=== PATIENT | male | born 1985 | race Caucasian/White ===

== ENCOUNTER 2017-05-25 16:42 | Inpatient (IN) | payer MEDICAID ==
[~2017-05-25] VITALS: Ht 185.4 cm; Wt 119.5 kg
[~2017-05-25 16:42] MED LIST: BUSP5TAB3 PO; CYCL-1 PO; TRAZ5POW
[2017-05-25] MEDS ORDERED: sodium bicarbonate (8.4%) 1 mEq/ml syringe IV ONE (17:10)
[2017-05-25] MEDS ORDERED: charcoal, activated 50 GM/240 ML bottle PO ONE (17:15)
[2017-05-25] MEDS ORDERED: normal saline 1000ml 1,000 ML IV ONE (17:15)
[2017-05-25 17:43] LABS: BASOPHILS # (AUTO) 0.1 X10'3 (0-0.2); BASOPHILS % (AUTO) 0.5 % (0-1); EOSINOPHILS # (AUTO) 0.2 X10'3 (0-0.9); EOSINOPHILS % (AUTO) 1.6 % (0-6); HEMATOCRIT 41.5 % (42.0-52.0); HEMOGLOBIN 14.3 g/dl (14.0-17.9); LYMPHOCYTES # (AUTO) 2.3 X10'3 (1.1-4.8); LYMPHOCYTES % (AUTO) 21.1 % (21-51); MEAN CORPUSCULAR HEMOGLOBIN 29.1 PG (27.0-31.0); MEAN CORPUSCULAR HGB CONC 34.3 % (33.0-36.5); MEAN CORPUSCULAR VOLUME 84.9 FL (78-98); MEAN PLATELET VOLUME 7.6 FL (7.4-10.4); MONOCYTES # (AUTO) 0.8 X10'3 (0-0.9); MONOCYTES % (AUTO) 7.2 % (2-12); NEUTROPHILS # (AUTO) 7.6 X10'3 (1.8-7.7); NEUTROPHILS % (AUTO) 69.6 % (42-75); PLATELET COUNT 401 X10'3 (140-440); RED BLOOD COUNT 4.89 X10'6 (4.70-6.10); RED CELL DISTRIBUTION WIDTH 13.1 % (11.5-14.5); WHITE BLOOD COUNT 10.9 X10'3 (4.5-11.0)
[2017-05-25 17:46] LABS: ABG BASE EXCESS -1.9 mmol/L (-2.0-3.0); ABG HCO3 20.7 mmol/L (22.0-26.0); ABG OXYGEN SATURATION 96.1 % (95-98); ABG PCO2 (T) 29.9 mmHg (35.0-48.0); ABG PH (T) 7.458 (7.350-7.450); ABG PO2 (T) 77.6 mmHg (83-108); ALLEN'S TEST Positive; FCOHb 3.2 % (0.5-1.5); FMetHb 0.1 % (0.3-1.12); FO2Hb 92.9 % (94-100); TOTAL HEMOGLOBIN 14.7 G/dl (14.0-18.0)
[2017-05-25] MEDS ORDERED: rocuronium 10mg/ml inj IV ONE (17:55)
[2017-05-25] MEDS: etomidate 2mg/ml inj. IV ONE ×2 (17:56→18:09)
[2017-05-25] MEDS ORDERED: propofol 1000mg/100ml bottle 100 ML IV ONE ×2 (18:02→22:40)
[2017-05-25 18:08] LABS: ALANINE AMINOTRANSFERASE 64 U/L (12-78); ALBUMIN 3.6 G/DL (3.4-5.0); ALKALINE PHOSPHATASE 101 IU/L (46-116); ANION GAP 13 (8-16); ASPARTATE AMINO TRANSFERASE 22 U/L (10-37); BILIRUBIN,TOTAL 0.2 MG/DL (0.1-1.0); BLOOD UREA NITROGEN 17 MG/DL (7-18); BUN/CREATININE RATIO 18.5 (5.4-32.0); CHLORIDE 110 MMOL/L (99-107); CREATININE 0.92 MG/DL (0.60-1.10); ETHANOL 0.132 GM/DL (0.0-0.010); GLUCOSE 97 MG/DL (70-104); POTASSIUM 3.2 MMOL/L (3.5-5.1); SODIUM 147 MMOL/L (135-145); TOTAL CARBON DIOXIDE 23.9 MMOL/L (24-32); TOTAL PROTEIN 7.2 G/DL (6.4-8.2); eGFR > 90 ML/MIN
[2017-05-25 18:12] LABS: ACETAMINOPHEN < 2.0 UG/ML (10-30)
[2017-05-25] MEDS: propofol 1000mg/100ml bottle 100 ML IV PRN ×2 (18:15→19:56)
[2017-05-25] MEDS ORDERED: magnesium Cl slow-release 64mg tablet PO PRN (19:00)
[2017-05-25] MEDS: K, MAG and/or Phos replacement - Verify level? MC SCH (19:00)
[2017-05-25] MEDS ORDERED: magnesium 2GM in 50ml NS 50 ML IV PRN (19:00)
[2017-05-25] MEDS ORDERED: sodium phosphate inj. 15 MMOL in dextrose 5%-water 150 ML IV PRN (19:00)
[2017-05-25] MEDS ORDERED: sodium phosphate inj. 30 MMOL in dextrose 5%-water 250 ML IV PRN (19:00)
[2017-05-25] MEDS ORDERED: Neutra Phos packet PO PRN (19:00)
[2017-05-25] MEDS ORDERED: magnesium 4gm in 100ml NS 100 ML IV PRN (19:00)
[2017-05-25] MEDS ORDERED: potassium Cl 20 mEq SR tablet PO PRN ×2 (19:00)
[2017-05-25 19:06] LABS: ABG BASE EXCESS -5.2 mmol/L (-2.0-3.0); ABG HCO3 18.9 mmol/L (22.0-26.0); ABG OXYGEN SATURATION 96.3 % (95-98); ABG PCO2 (T) 32.3 mmHg (35.0-48.0); ABG PH (T) 7.383 (7.350-7.450); ABG PO2 (T) 86.2 mmHg (83-108); ALLEN'S TEST Positive; FCOHb 2.3 % (0.5-1.5); FMetHb 0.1 % (0.3-1.12); MINUTE VOLUME 13 L/min; PATIENT TEMPERATURE 36.4; PEEP 5 cm H2O; RESPIRATORY RATE 20 b/min; RESPIRATORY RATE (OBSERVED) 20 b/min; TIDAL VOLUME 500 mL
[2017-05-25 19:16] LABS: CLARITY,URINE Clear (Clear); COLOR,URINE Yellow (Yellow); GLUCOSE, URINE Negative (Neg); KETONES,URINE Negative (Neg); LEUKOCYTE ESTERASE ,URINE Negative (Neg); NITRITES, URINE Negative (Neg); OCCULT BLOOD,URINE Negative (Neg); PH,URINE 7.5 (4.8-8.0); PROTEIN,URINE Negative (Neg); UROBILINOGEN,URINE 0.2 E.U/dL (0.2-1.0)
[2017-05-25 19:25] LABS: UA COLLECTION TYPE FOLEY CATH
[2017-05-25 19:29] LABS: URINE AMPHETAMINE SCREEN NEGATIVE (Neg); URINE BARBITUATE SCREEN NEGATIVE (Neg); URINE BENZODIAZEPINES SCREEN NEGATIVE (Neg); URINE CANNABINOID SCREEN NEGATIVE (Neg); URINE COCAINE SCREEN NEGATIVE (Neg); URINE METHADONE SCREEN NEGATIVE (Neg); URINE OPIATE SCREEN NEGATIVE (Neg); URINE PHENCYCLIDINE SCREEN NEGATIVE (Neg)
[2017-05-25] MEDS: pantoprazole 40 MG vial IV SCH (19:33)
[2017-05-25] MEDS: sodium bicarbonate (8.4%) inj. 100 MEQ in dextrose 5%-water 1,000 ML IV SCH (19:54)
[2017-05-25] MEDS: enoxaparin 40mg/0.4ml syringe SUBCUT SCH (20:01)
[2017-05-25] MEDS ORDERED: TOPI200T PO (20:49)
[2017-05-25] MEDS ORDERED: AMIT-189 PO (20:51)
[2017-05-25] MEDS ORDERED: midazolam 2 mg/2 ml injection IV ONE (21:40)
[2017-05-25] MEDS ORDERED: fentaNYL/PF 50MCG/1 ML 2ML syringe IV PRN (21:40)
[2017-05-25 23:00] VITALS: BP 157/98
[2017-05-25] MEDS: midazolam 100mg in NS 100ml 100 ML IV PRN (23:08)
[2017-05-25] MEDS: FENTANYL-0.9 % NACL/PF 100 ML IV PRN (23:09)
[2017-05-26] VITALS (25 sets, daily range): BP systolic 96–153; BP diastolic 55–101
[2017-05-26] MEDS ORDERED: sodium bicarbonate (8.4%) 1 mEq/ml syringe IV STA (01:16)
[2017-05-26] MEDS ORDERED: normal saline 1000ml 1,000 ML IVB ONE (01:23)
[2017-05-26] MEDS ORDERED: potassium Cl 40MEQ/NS 500ml 500 ML IV PRN (01:25)
[2017-05-26 01:28] LABS: ALBUMIN 3.2 G/DL (3.4-5.0); ANION GAP 11 (8-16); BLOOD UREA NITROGEN 16 MG/DL (7-18); BUN/CREATININE RATIO 16.8 (5.4-32.0); CALCIUM 7.6 MG/DL (8.5-10.1); CHLORIDE 110 MMOL/L (99-107); CREATININE 0.95 MG/DL (0.60-1.10); GLUCOSE 139 MG/DL (70-104); POTASSIUM 3.5 MMOL/L (3.5-5.1); SODIUM 145 MMOL/L (135-145); TOTAL CARBON DIOXIDE 23.9 MMOL/L (24-32); eGFR > 90 ML/MIN
[2017-05-26 01:35] LABS: ABG BASE EXCESS -2.9 mmol/L (-2.0-3.0); ABG HCO3 21.3 mmol/L (22.0-26.0); ABG OXYGEN SATURATION 98.8 % (95-98); ABG PCO2 (T) 34.4 mmHg (35.0-48.0); ABG PH (T) 7.406 (7.350-7.450); ABG PO2 (T) 147.2 mmHg (83-108); ALLEN'S TEST Positive; FCOHb 0.1 % (0.5-1.5); FMetHb 0.2 % (0.3-1.12); FO2Hb 98.5 % (94-100); MINUTE VOLUME 11 L/min; PATIENT TEMPERATURE 36.5; PEEP 5 cm H2O; RESPIRATORY RATE 20 b/min; RESPIRATORY RATE (OBSERVED) 20 b/min; TIDAL VOLUME 500 mL; TOTAL HEMOGLOBIN 13.4 G/dl (14.0-18.0)
[2017-05-26 04:16] LABS: BASOPHILS % (AUTO) 0.3 % (0-1); EOSINOPHILS # (AUTO) 0.2 X10'3 (0-0.9); EOSINOPHILS % (AUTO) 1.5 % (0-6); HEMOGLOBIN 13.6 g/dl (14.0-17.9); MEAN CORPUSCULAR HEMOGLOBIN 29.3 PG (27.0-31.0); MEAN CORPUSCULAR HGB CONC 34.8 % (33.0-36.5); MEAN CORPUSCULAR VOLUME 84.3 FL (78-98); MEAN PLATELET VOLUME 7.8 FL (7.4-10.4); MONOCYTES # (AUTO) 0.8 X10'3 (0-0.9); MONOCYTES % (AUTO) 7.4 % (2-12); NEUTROPHILS # (AUTO) 8.1 X10'3 (1.8-7.7); NEUTROPHILS % (AUTO) 72.8 % (42-75); PLATELET COUNT 267 X10'3 (140-440); RED BLOOD COUNT 4.63 X10'6 (4.70-6.10); RED CELL DISTRIBUTION WIDTH 13.4 % (11.5-14.5); WHITE BLOOD COUNT 11.2 X10'3 (4.5-11.0)
[2017-05-26 04:25] LABS: ALANINE AMINOTRANSFERASE 58 U/L (12-78); ALBUMIN 3.3 G/DL (3.4-5.0); ALBUMIN/GLOBULIN RATIO 0.9 (1.1-1.5); ALKALINE PHOSPHATASE 97 IU/L (46-116); ANION GAP 11 (8-16); ASPARTATE AMINO TRANSFERASE 22 U/L (10-37); BILIRUBIN,TOTAL 0.2 MG/DL (0.1-1.0); BLOOD UREA NITROGEN 16 MG/DL (7-18); BUN/CREATININE RATIO 18.2 (5.4-32.0); CALCIUM 7.9 MG/DL (8.5-10.1); CHLORIDE 110 MMOL/L (99-107); CREATININE 0.88 MG/DL (0.60-1.10); GLUCOSE 137 MG/DL (70-104); MAGNESIUM 1.7 MG/DL (1.5-2.4); POTASSIUM 3.6 MMOL/L (3.5-5.1); SODIUM 144 MMOL/L (135-145); TOTAL CARBON DIOXIDE 22.6 MMOL/L (24-32); TOTAL PROTEIN 6.8 G/DL (6.4-8.2); eGFR > 90 ML/MIN
[2017-05-26 04:47] LABS: INR 1.1 INR; PARTIAL THROMBOPLASTIN TIME 22 SECONDS (22-32); PROTHROMBIN TIME 11.2 SECONDS (9.0-12.0)
[2017-05-26] MEDS: sodium bicarbonate (8.4%) inj. 100 MEQ in dextrose 5%-water 1,000 ML IV SCH ×2 (06:49→17:33)
[2017-05-26] MEDS: FENTANYL-0.9 % NACL/PF 100 ML IV PRN ×2 (06:53→23:46)
[2017-05-26 07:42] LABS: ALANINE AMINOTRANSFERASE 55 U/L (12-78); ALBUMIN 3.3 G/DL (3.4-5.0); ALBUMIN/GLOBULIN RATIO 0.9 (1.1-1.5); ALKALINE PHOSPHATASE 97 IU/L (46-116); ANION GAP 11 (8-16); ASPARTATE AMINO TRANSFERASE 19 U/L (10-37); BILIRUBIN,TOTAL 0.4 MG/DL (0.1-1.0); BLOOD UREA NITROGEN 15 MG/DL (7-18); CHLORIDE 110 MMOL/L (99-107); GLUCOSE 109 MG/DL (70-104); POTASSIUM 3.3 MMOL/L (3.5-5.1); SODIUM 146 MMOL/L (135-145); TOTAL CARBON DIOXIDE 24.8 MMOL/L (24-32); TOTAL PROTEIN 6.8 G/DL (6.4-8.2); eGFR 87 ML/MIN
[2017-05-26] MEDS: K, MAG and/or Phos replacement - Verify level? MC SCH (08:00)
[2017-05-26] MEDS: pantoprazole 40 MG vial IV SCH (08:36)
[2017-05-26] MEDS: enoxaparin 40mg/0.4ml syringe SUBCUT SCH (08:37)
[2017-05-26 09:13] LABS: ALBUMIN 3.2 G/DL (3.4-5.0); ANION GAP 11 (8-16); BLOOD UREA NITROGEN 14 MG/DL (7-18); BUN/CREATININE RATIO 13.7 (5.4-32.0); CHLORIDE 110 MMOL/L (99-107); CREATININE 1.02 MG/DL (0.60-1.10); GLUCOSE 106 MG/DL (70-104); POTASSIUM 3.2 MMOL/L (3.5-5.1); SODIUM 147 MMOL/L (135-145); TOTAL CARBON DIOXIDE 25.7 MMOL/L (24-32); eGFR 85 ML/MIN
[2017-05-26] MEDS: potassium Cl 40MEQ/NS 500ml 500 ML IV PRN (09:53)
[2017-05-26 11:31] LABS: ALANINE AMINOTRANSFERASE 48 U/L (12-78); ALBUMIN 3.2 G/DL (3.4-5.0); ALBUMIN/GLOBULIN RATIO 0.9 (1.1-1.5); ALKALINE PHOSPHATASE 99 IU/L (46-116); ANION GAP 9 (8-16); ASPARTATE AMINO TRANSFERASE 25 U/L (10-37); BILIRUBIN,TOTAL 0.4 MG/DL (0.1-1.0); BLOOD UREA NITROGEN 14 MG/DL (7-18); BUN/CREATININE RATIO 13.3 (5.4-32.0); CHLORIDE 111 MMOL/L (99-107); CREATININE 1.05 MG/DL (0.60-1.10); GLUCOSE 100 MG/DL (70-104); MAGNESIUM 1.6 MG/DL (1.5-2.4); POTASSIUM 3.4 MMOL/L (3.5-5.1); SODIUM 147 MMOL/L (135-145); TOTAL CARBON DIOXIDE 26.8 MMOL/L (24-32); TOTAL PROTEIN 6.6 G/DL (6.4-8.2); eGFR 82 ML/MIN
[2017-05-26 13:11] LABS: ABG BASE EXCESS -2.2 mmol/L (-2.0-3.0); ABG HCO3 20.8 mmol/L (22.0-26.0); ABG OXYGEN SATURATION 96.7 % (95-98); ABG PCO2 (T) 31.6 mmHg (35.0-48.0); ABG PH (T) 7.439 (7.350-7.450); ABG PO2 (T) 91.1 mmHg (83-108); ALLEN'S TEST Positive; FCOHb 0.3 % (0.5-1.5); FLOW 55 L/min; FMetHb 0.2 % (0.3-1.12); FO2Hb 96.2 % (94-100); MINUTE VOLUME 11 L/min; PATIENT TEMPERATURE 37.6; PEEP 5 cm H2O; RESPIRATORY RATE 20 b/min; RESPIRATORY RATE (OBSERVED) 20 b/min; TIDAL VOLUME 500 mL; TOTAL HEMOGLOBIN 13.6 G/dl (14.0-18.0)
[2017-05-26] MEDS: midazolam 100mg in NS 100ml 100 ML IV PRN (13:20)
[2017-05-26] MEDS ORDERED: sodium chloride 0.45% 1,000 ML IV ONE (19:30)
[2017-05-26 23:06] LABS: ALBUMIN 2.9 G/DL (3.4-5.0); ANION GAP 10 (8-16); BLOOD UREA NITROGEN 15 MG/DL (7-18); CHLORIDE 109 MMOL/L (99-107); GLUCOSE 93 MG/DL (70-104); POTASSIUM 3.2 MMOL/L (3.5-5.1); SODIUM 143 MMOL/L (135-145); TOTAL CARBON DIOXIDE 23.9 MMOL/L (24-32); eGFR 87 ML/MIN
[2017-05-27] VITALS (24 sets, daily range): BP systolic 113–155; BP diastolic 69–97
[2017-05-27] MEDS: potassium Cl 40MEQ/NS 500ml 500 ML IV PRN ×2 (01:23→12:30)
[2017-05-27] MEDS: mineral oil/petrolatum ophthal oint EACHEYE SCH ×4 (01:31→20:00)
[2017-05-27 03:21] LABS: ABG BASE EXCESS -0.2 mmol/L (-2.0-3.0); ABG HCO3 22.6 mmol/L (22.0-26.0); ABG OXYGEN SATURATION 96.2 % (95-98); ABG PH (T) 7.468 (7.350-7.450); ABG PO2 (T) 79.5 mmHg (83-108); ALLEN'S TEST Positive; FCOHb 0.8 % (0.5-1.5); FMetHb 0.3 % (0.3-1.12); FO2Hb 95.1 % (94-100); MINUTE VOLUME 11 L/min; PATIENT TEMPERATURE 37.5; PEEP 5 cm H2O; RESPIRATORY RATE 20 b/min; RESPIRATORY RATE (OBSERVED) 20 b/min; TIDAL VOLUME 500 mL; TOTAL HEMOGLOBIN 12.6 G/dl (14.0-18.0)
[2017-05-27] MEDS: midazolam 100mg in NS 100ml 100 ML IV PRN ×2 (04:25→16:59)
[2017-05-27] MEDS: sodium bicarbonate (8.4%) inj. 100 MEQ in dextrose 5%-water 1,000 ML IV SCH (04:25)
[2017-05-27 05:22] LABS: BASOPHILS # (AUTO) 0.1 X10'3 (0-0.2); BASOPHILS % (AUTO) 0.4 % (0-1); EOSINOPHILS # (AUTO) 0.6 X10'3 (0-0.9); EOSINOPHILS % (AUTO) 4.7 % (0-6); HEMATOCRIT 37.1 % (42.0-52.0); HEMOGLOBIN 12.6 g/dl (14.0-17.9); LYMPHOCYTES # (AUTO) 3.7 X10'3 (1.1-4.8); LYMPHOCYTES % (AUTO) 27.2 % (21-51); MEAN CORPUSCULAR HEMOGLOBIN 29.1 PG (27.0-31.0); MEAN CORPUSCULAR HGB CONC 34.1 % (33.0-36.5); MEAN CORPUSCULAR VOLUME 85.3 FL (78-98); MEAN PLATELET VOLUME 7.7 FL (7.4-10.4); MONOCYTES # (AUTO) 1.2 X10'3 (0-0.9); MONOCYTES % (AUTO) 8.8 % (2-12); NEUTROPHILS # (AUTO) 8.1 X10'3 (1.8-7.7); NEUTROPHILS % (AUTO) 58.9 % (42-75); PLATELET COUNT 334 X10'3 (140-440); RED BLOOD COUNT 4.35 X10'6 (4.70-6.10); RED CELL DISTRIBUTION WIDTH 13.2 % (11.5-14.5); WHITE BLOOD COUNT 13.7 X10'3 (4.5-11.0)
[2017-05-27 05:52] LABS: PARTIAL THROMBOPLASTIN TIME 28 SECONDS (22-32)
[2017-05-27 06:11] LABS: ALANINE AMINOTRANSFERASE 44 U/L (12-78); ALBUMIN 2.9 G/DL (3.4-5.0); ALBUMIN/GLOBULIN RATIO 0.9 (1.1-1.5); ALKALINE PHOSPHATASE 100 IU/L (46-116); ANION GAP 13 (8-16); ASPARTATE AMINO TRANSFERASE 25 U/L (10-37); BILIRUBIN,TOTAL 0.5 MG/DL (0.1-1.0); BLOOD UREA NITROGEN 15 MG/DL (7-18); BUN/CREATININE RATIO 13.5 (5.4-32.0); CALCIUM 7.8 MG/DL (8.5-10.1); CHLORIDE 108 MMOL/L (99-107); CREATININE 1.11 MG/DL (0.60-1.10); GLUCOSE 94 MG/DL (70-104); MAGNESIUM 1.7 MG/DL (1.5-2.4); PHOSPHORUS 3.4 MG/DL (2.3-4.5); POTASSIUM 3.4 MMOL/L (3.5-5.1); SODIUM 144 MMOL/L (135-145); TOTAL CARBON DIOXIDE 23.4 MMOL/L (24-32); TOTAL PROTEIN 6.3 G/DL (6.4-8.2); eGFR 77 ML/MIN
[2017-05-27] MEDS: K, MAG and/or Phos replacement - Verify level? MC SCH (08:00)
[2017-05-27] MEDS: enoxaparin 40mg/0.4ml syringe SUBCUT SCH (08:55)
[2017-05-27] MEDS: pantoprazole 40 MG vial IV SCH (08:55)
[2017-05-27] MEDS: normal saline 1000ml 1,000 ML IV SCH (10:35)
[2017-05-27] MEDS: propofol 1000mg/100ml bottle 100 ML IV PRN ×3 (11:53→21:40)
[2017-05-27] MEDS: FENTANYL-0.9 % NACL/PF 100 ML IV PRN (12:30)
[2017-05-28] VITALS (24 sets, daily range): BP systolic 125–165; BP diastolic 77–100
[2017-05-28] MEDS: mineral oil/petrolatum ophthal oint EACHEYE SCH ×2 (02:33→07:58)
[2017-05-28] MEDS: propofol 1000mg/100ml bottle 100 ML IV PRN ×2 (02:49→06:33)
[2017-05-28 03:31] LABS: ABG BASE EXCESS -2.9 mmol/L (-2.0-3.0); ABG OXYGEN SATURATION 92.2 % (95-98); ABG PCO2 (T) 33.6 mmHg (35.0-48.0); ABG PH (T) 7.413 (7.350-7.450); ABG PO2 (T) 63.8 mmHg (83-108); ALLEN'S TEST Positive; FCOHb 0.3 % (0.5-1.5); FMetHb 0.1 % (0.3-1.12); FO2Hb 91.8 % (94-100); MINUTE VOLUME 10 L/min; PATIENT TEMPERATURE 36.9; PEEP 5 cm H2O; RESPIRATORY RATE 18 b/min; RESPIRATORY RATE (OBSERVED) 18 b/min; TIDAL VOLUME 500 mL; TOTAL HEMOGLOBIN 13.2 G/dl (14.0-18.0)
[2017-05-28 05:45] LABS: BASOPHILS # (AUTO) 0.1 X10'3 (0-0.2); BASOPHILS % (AUTO) 0.7 % (0-1); EOSINOPHILS # (AUTO) 0.5 X10'3 (0-0.9); EOSINOPHILS % (AUTO) 5.3 % (0-6); HEMATOCRIT 39.7 % (42.0-52.0); HEMOGLOBIN 13.7 g/dl (14.0-17.9); LYMPHOCYTES # (AUTO) 1.9 X10'3 (1.1-4.8); LYMPHOCYTES % (AUTO) 20.4 % (21-51); MEAN CORPUSCULAR HEMOGLOBIN 29.5 PG (27.0-31.0); MEAN CORPUSCULAR HGB CONC 34.5 % (33.0-36.5); MEAN CORPUSCULAR VOLUME 85.4 FL (78-98); MEAN PLATELET VOLUME 7.5 FL (7.4-10.4); MONOCYTES # (AUTO) 0.6 X10'3 (0-0.9); NEUTROPHILS % (AUTO) 66.6 % (42-75); PLATELET COUNT 309 X10'3 (140-440); RED BLOOD COUNT 4.65 X10'6 (4.70-6.10); RED CELL DISTRIBUTION WIDTH 13.1 % (11.5-14.5); WHITE BLOOD COUNT 9.1 X10'3 (4.5-11.0)
[2017-05-28 05:55] LABS: INR 0.9 INR; PARTIAL THROMBOPLASTIN TIME 30 SECONDS (22-32); PROTHROMBIN TIME 9.8 SECONDS (9.0-12.0)
[2017-05-28 06:06] LABS: ALANINE AMINOTRANSFERASE 40 U/L (12-78); ALBUMIN/GLOBULIN RATIO 0.8 (1.1-1.5); ALKALINE PHOSPHATASE 110 IU/L (46-116); ANION GAP 13 (8-16); ASPARTATE AMINO TRANSFERASE 21 U/L (10-37); BILIRUBIN,TOTAL 0.6 MG/DL (0.1-1.0); BLOOD UREA NITROGEN 10 MG/DL (7-18); CALCIUM 8.7 MG/DL (8.5-10.1); CHLORIDE 106 MMOL/L (99-107); CREATININE 0.91 MG/DL (0.60-1.10); GLUCOSE 81 MG/DL (70-104); MAGNESIUM 1.8 MG/DL (1.5-2.4); PHOSPHORUS 4.2 MG/DL (2.3-4.5); POTASSIUM 3.5 MMOL/L (3.5-5.1); SODIUM 142 MMOL/L (135-145); TOTAL PROTEIN 6.8 G/DL (6.4-8.2); eGFR > 90 ML/MIN
[2017-05-28] MEDS: normal saline 1000ml 1,000 ML IV SCH (06:43)
[2017-05-28] MEDS: enoxaparin 40mg/0.4ml syringe SUBCUT SCH (07:58)
[2017-05-28] MEDS: pantoprazole 40 MG vial IV SCH (07:58)
[2017-05-28] MEDS: K, MAG and/or Phos replacement - Verify level? MC SCH (07:58)
[2017-05-28] MEDS: FENTANYL-0.9 % NACL/PF 100 ML IV PRN (08:33)
[2017-05-28] MEDS ORDERED: furosemide 40mg/4ml inj IV ONE (09:50)
[2017-05-28] MEDS ORDERED: mineral oil/petrolatum ophthal oint EACHEYE SCH (14:00)
[2017-05-28] MEDS ORDERED: ketorolac trometh. 30mg/ml inj. IV ONE (14:05)
[2017-05-28 14:30] LABS: BASOPHILS % (AUTO) 0.3 % (0-1); EOSINOPHILS # (AUTO) 0.3 X10'3 (0-0.9); EOSINOPHILS % (AUTO) 2.3 % (0-6); HEMATOCRIT 41.7 % (42.0-52.0); HEMOGLOBIN 14.5 g/dl (14.0-17.9); LYMPHOCYTES # (AUTO) 1.3 X10'3 (1.1-4.8); LYMPHOCYTES % (AUTO) 10.5 % (21-51); MEAN CORPUSCULAR HEMOGLOBIN 29.2 PG (27.0-31.0); MEAN CORPUSCULAR HGB CONC 34.8 % (33.0-36.5); MEAN CORPUSCULAR VOLUME 83.9 FL (78-98); MEAN PLATELET VOLUME 7.6 FL (7.4-10.4); MONOCYTES # (AUTO) 0.6 X10'3 (0-0.9); MONOCYTES % (AUTO) 4.9 % (2-12); PLATELET COUNT 387 X10'3 (140-440); RED BLOOD COUNT 4.97 X10'6 (4.70-6.10); WHITE BLOOD COUNT 12.1 X10'3 (4.5-11.0)
[2017-05-28] MEDS ORDERED: acetaminophen 325mg tablet PO PRN (14:50)
[2017-05-28 16:54] LABS: PLATELET ESTIMATE NORMAL; TOTAL CELLS COUNTED 100
[2017-05-29] VITALS (15 sets, daily range): BP systolic 119–154; BP diastolic 66–95
[2017-05-29 06:05] LABS: BASOPHILS % (AUTO) 0.3 % (0-1); EOSINOPHILS # (AUTO) 0.5 X10'3 (0-0.9); EOSINOPHILS % (AUTO) 6.4 % (0-6); HEMATOCRIT 37.5 % (42.0-52.0); HEMOGLOBIN 13.1 g/dl (14.0-17.9); LYMPHOCYTES # (AUTO) 2.1 X10'3 (1.1-4.8); LYMPHOCYTES % (AUTO) 25.7 % (21-51); MEAN CORPUSCULAR HEMOGLOBIN 29.3 PG (27.0-31.0); MEAN CORPUSCULAR HGB CONC 34.8 % (33.0-36.5); MEAN CORPUSCULAR VOLUME 84.4 FL (78-98); MEAN PLATELET VOLUME 7.8 FL (7.4-10.4); MONOCYTES # (AUTO) 0.8 X10'3 (0-0.9); MONOCYTES % (AUTO) 9.9 % (2-12); NEUTROPHILS # (AUTO) 4.7 X10'3 (1.8-7.7); NEUTROPHILS % (AUTO) 57.7 % (42-75); PLATELET COUNT 350 X10'3 (140-440); RED BLOOD COUNT 4.45 X10'6 (4.70-6.10); RED CELL DISTRIBUTION WIDTH 12.9 % (11.5-14.5); WHITE BLOOD COUNT 8.2 X10'3 (4.5-11.0)
[2017-05-29 06:14] LABS: PARTIAL THROMBOPLASTIN TIME 30 SECONDS (22-32); PROTHROMBIN TIME 9.9 SECONDS (9.0-12.0)
[2017-05-29 06:18] LABS: ALANINE AMINOTRANSFERASE 60 U/L (12-78); ALBUMIN 3.1 G/DL (3.4-5.0); ALBUMIN/GLOBULIN RATIO 0.7 (1.1-1.5); ALKALINE PHOSPHATASE 118 IU/L (46-116); ANION GAP 11 (8-16); ASPARTATE AMINO TRANSFERASE 43 U/L (10-37); BILIRUBIN,TOTAL 0.5 MG/DL (0.1-1.0); BLOOD UREA NITROGEN 14 MG/DL (7-18); BUN/CREATININE RATIO 14.1 (5.4-32.0); CALCIUM 9.2 MG/DL (8.5-10.1); CHLORIDE 106 MMOL/L (99-107); CREATININE 0.99 MG/DL (0.60-1.10); GLUCOSE 104 MG/DL (70-104); PHOSPHORUS 5.4 MG/DL (2.3-4.5); POTASSIUM 3.5 MMOL/L (3.5-5.1); SODIUM 142 MMOL/L (135-145); TOTAL CARBON DIOXIDE 25.3 MMOL/L (24-32); TOTAL PROTEIN 7.3 G/DL (6.4-8.2); eGFR 88 ML/MIN
[2017-05-29] MEDS: K, MAG and/or Phos replacement - Verify level? MC SCH (07:32)
[2017-05-29] MEDS: pantoprazole 40 MG vial IV SCH (07:41)
[2017-05-29] MEDS: enoxaparin 40mg/0.4ml syringe SUBCUT SCH (07:47)
[2017-05-30] MEDS ORDERED: pantoprazole 40mg Tablet.DR PO SCH (07:30)
[2017-05-30] MEDS ORDERED: methylnaltrexone br 12mg/0.6ml inj***SubQ only SQ SCH (08:00)
== END 2017-05-29 16:31 | disposition home or self-care (01) | DRG 812 ==
LOC: ER 16:42 → ED HOLD 18:57 → ICU 2S 22:50
PROVIDERS: ADMIT Internal Medicine Critical Care Medicine; ATTEND Internal Medicine Critical Care Medicine
PROC: 5A1945Z Respiratory Ventilation, 24-96 Consecutive Hours (ICD-10-PCS; principal; 2017-05-25)
PROC: 0BH17EZ Insertion of Endotracheal Airway into Trachea, Via Natural or Artificial Opening (ICD-10-PCS; 2017-05-25)
DX: T48.1X2A Poisoning by skeletal muscle relaxants [neuromuscular blocking agents], intentional self-harm, initial encounter (principal); J96.00 Acute respiratory failure, unspecified whether with hypoxia or hypercapnia; G92 Toxic encephalopathy; F43.10 Post-traumatic stress disorder, unspecified; G89.29 Other chronic pain; F32.9 Major depressive disorder, single episode, unspecified; M54.9 Dorsalgia, unspecified; T43.012A Poisoning by tricyclic antidepressants, intentional self-harm, initial encounter; T51.8X2A Toxic effect of other alcohols, intentional self-harm, initial encounter; Y92.89 Other specified places as the place of occurrence of the external cause; Z88.8 Allergy status to other drugs, medicaments and biological substances; Z79.899 Other long term (current) drug therapy
CPT/HCPCS: 36415; 36600; 71045; 80048; 80053; 80305; 80320; 80329; 81003; 82803; 82948; 83605; 83735; 84100; 84443; 85007; 85018; 85025; 85610; 85730; 87040; 87070; 93005; 94002; 94003; 96374; 96375; 97110; 97116; 97161; 99291; A6213; C9113; J1650; J1885; J1940; J2250; J2704; J3480; J7030

== ENCOUNTER 2020-10-03 06:18 | Emergency (ER) | payer MEDICAID ==
[~2020-10-03] VITALS: Ht 185.4 cm; Wt 125.0 kg
[~2020-10-03 06:18] MED LIST changes: -BUSP5TAB3 PO; -CYCL-1 PO; +DIAZ10TA4 PO; +HYDR-3686 PO; +HYDR-4353 PO; +PALI6TAB PO; +SYN0.088T PO; +TEST200V10 IM; +TOP100T PO; +TOPI50TA PO; -TRAZ5POW
--- NOTE | 2020-10-03 08:00 | NUR ---
Pt given a cup of water and asked to provide urine sample. He stated he "will try" but was unable to provide a sample. Will wait another hour.
[2020-10-03 08:12] LABS: BASOPHILS # (AUTO) 0.1 X10'3 (0-0.2); BASOPHILS % (AUTO) 0.8 % (0-1); EOSINOPHILS # (AUTO) 0.1 X10'3 (0-0.9); EOSINOPHILS % (AUTO) 1.1 % (0-6); HEMATOCRIT 43.4 % (42.0-52.0); HEMOGLOBIN 14.8 g/dl (14.0-17.9); LYMPHOCYTES # (AUTO) 2.9 X10'3 (1.1-4.8); LYMPHOCYTES % (AUTO) 41.8 % (21-51); MEAN CORPUSCULAR HEMOGLOBIN 30.3 PG (27.0-31.0); MEAN CORPUSCULAR VOLUME 88.9 FL (78-98); MEAN PLATELET VOLUME 7.2 FL (7.4-10.4); MONOCYTES # (AUTO) 0.6 X10'3 (0-0.9); MONOCYTES % (AUTO) 8.7 % (2-12); NEUTROPHILS # (AUTO) 3.3 X10'3 (1.8-7.7); NEUTROPHILS % (AUTO) 47.6 % (42-75); PLATELET COUNT 357 X10'3 (140-440); RED BLOOD COUNT 4.88 X10'6 (4.70-6.10); RED CELL DISTRIBUTION WIDTH 12.6 % (11.5-14.5)
[2020-10-03 08:45] LABS: ALBUMIN 3.8 G/DL (3.4-5.0); ALKALINE PHOSPHATASE 86 IU/L (46-116); ANION GAP 13 (8-16); BILIRUBIN,TOTAL 0.2 MG/DL (0.1-1.0); BLOOD UREA NITROGEN 19 MG/DL (7-18); BUN/CREATININE RATIO 20.2 (5.4-32.0); CALCIUM 8.2 MG/DL (8.5-10.1); CHLORIDE 104 MMOL/L (99-107); CREATININE 0.94 MG/DL (0.60-1.10); ETHANOL 0.095 GM/DL (0.0-0.010); SODIUM 141 MMOL/L (135-145); TOTAL CARBON DIOXIDE 24.2 MMOL/L (24-32); TOTAL PROTEIN 7.7 G/DL (6.4-8.2); eGFR > 90 ML/MIN
[2020-10-03 08:49] LABS: GLUCOSE 124 MG/DL (70-104); POTASSIUM 4.5 MMOL/L (3.5-5.1)
[2020-10-03 09:10] LABS: ALANINE AMINOTRANSFERASE 47 U/L (12-78); ASPARTATE AMINO TRANSFERASE 32 U/L (10-37)
--- NOTE | 2020-10-03 09:30 | NUR ---
Pt states that he is still not able to provide a sample. Denies feeling his bladder fluid. Asked for more water. He was given another cup of water but he still was not able to provide it.
--- NOTE | 2020-10-03 10:30 | NUR ---
Pt reports he is still not able to provide a urine sample after drinking more water. He denies any need to urinate or feeling his bladder full.
--- NOTE | 2020-10-03 12:23 | NUR ---
Pt's called to speak with pt and get an update. Informed that pt was currently sleeping, and she asked that when he woke, that pt be informed that she would like to speak with him.
--- NOTE | 2020-10-03 13:00 | NUR ---
Pt was able to provide urine sample. Urinated approximately 700 mL of fluid. He is resting on the bed.
[2020-10-03 13:36] LABS: CLARITY,URINE CLEAR (Clear); COLOR,URINE YELLOW (Yellow); GLUCOSE, URINE NEGATIVE (Neg); KETONES,URINE TRACE mg/dl (Neg); LEUKOCYTE ESTERASE ,URINE NEGATIVE (Neg); NITRITES, URINE NEGATIVE (Neg); OCCULT BLOOD,URINE NEGATIVE (Neg); PH,URINE 5.5 (4.8-8.0); PROTEIN,URINE NEGATIVE (Neg); UROBILINOGEN,URINE 0.2 E.U/dL (0.2-1.0)
[2020-10-03 13:40] LABS: URINE AMPHETAMINE SCREEN NEGATIVE (Neg); URINE BARBITUATE SCREEN NEGATIVE (Neg); URINE BENZODIAZEPINES SCREEN POSITIVE (Neg); URINE CANNABINOID SCREEN POSITIVE (Neg); URINE COCAINE SCREEN NEGATIVE (Neg); URINE METHADONE SCREEN NEGATIVE (Neg); URINE OPIATE SCREEN POSITIVE (Neg); URINE PHENCYCLIDINE SCREEN NEGATIVE (Neg)
[2020-10-03 13:41] LABS: UA COLLECTION TYPE CLN CATCH MIDSTREAM
[2020-10-03 15:50] VITALS: BP 140/90
== END 2020-10-03 15:41 ==
LOC: ER 06:18
DX: R45.851 Suicidal ideations (principal); Z20.822 Contact with and (suspected) exposure to COVID-19; F32.9 Major depressive disorder, single episode, unspecified; F10.129 Alcohol abuse with intoxication, unspecified; F12.90 Cannabis use, unspecified, uncomplicated; G89.29 Other chronic pain; Z79.899 Other long term (current) drug therapy; Z98.890 Other specified postprocedural states; Y90.0 Blood alcohol level of less than 20 mg/100 ml
CPT/HCPCS: 36415; 80053; 80305; 80320; 81003; 84443; 85025; 87635; 99285; C9803

== ENCOUNTER 2020-10-19 11:39 | Inpatient (IN) | payer MEDICAID ==
[~2020-10-19] VITALS: Ht 185.4 cm; Wt 122.7 kg
[2020-10-19] MEDS ORDERED: ondansetron/PF 4mg/2ml inj IV ONE (12:00)
[2020-10-19] MEDS ORDERED: normal saline 1000ML IV soln IV ONE (12:00)
[2020-10-19] MEDS ORDERED: iohexol 300mg/ml 100ml inj. ONE (12:19)
[2020-10-19 12:28] LABS: BASOPHILS # (AUTO) 0.1 X10'3 (0-0.2); BASOPHILS % (AUTO) 0.4 % (0-1); EOSINOPHILS # (AUTO) 0.2 X10'3 (0-0.9); EOSINOPHILS % (AUTO) 1.3 % (0-6); HEMOGLOBIN 15.3 g/dl (14.0-17.9); LYMPHOCYTES # (AUTO) 1.7 X10'3 (1.1-4.8); LYMPHOCYTES % (AUTO) 12.3 % (21-51); MEAN CORPUSCULAR HEMOGLOBIN 29.4 PG (27.0-31.0); MEAN CORPUSCULAR HGB CONC 33.3 g/dL (33.0-36.5); MEAN CORPUSCULAR VOLUME 88.4 FL (78-98); MEAN PLATELET VOLUME 7.2 FL (7.4-10.4); MONOCYTES # (AUTO) 1.1 X10'3 (0-0.9); MONOCYTES % (AUTO) 8.1 % (2-12); NEUTROPHILS # (AUTO) 10.5 X10'3 (1.8-7.7); NEUTROPHILS % (AUTO) 77.9 % (42-75); PLATELET COUNT 527 X10'3 (140-440); RED CELL DISTRIBUTION WIDTH 13.1 % (11.5-14.5); WHITE BLOOD COUNT 13.4 X10'3 (4.5-11.0)
[2020-10-19 12:43] LABS: ALANINE AMINOTRANSFERASE 48 U/L (12-78); ALBUMIN 4.7 G/DL (3.4-5.0); ALBUMIN/GLOBULIN RATIO 1.1 (1.1-1.5); ALKALINE PHOSPHATASE 136 IU/L (46-116); ANION GAP 13 (8-16); ASPARTATE AMINO TRANSFERASE 29 U/L (10-37); BILIRUBIN,TOTAL 0.7 MG/DL (0.1-1.0); BLOOD UREA NITROGEN 12 MG/DL (7-18); BUN/CREATININE RATIO 11.8 (5.4-32.0); CALCIUM 9.5 MG/DL (8.5-10.1); CHLORIDE 101 MMOL/L (99-107); CREATININE 1.02 MG/DL (0.60-1.10); GLUCOSE 121 MG/DL (70-104); MAGNESIUM 2.2 MG/DL (1.5-2.4); POTASSIUM 4.6 MMOL/L (3.5-5.1); SODIUM 140 MMOL/L (135-145); TOTAL CARBON DIOXIDE 26.1 MMOL/L (24-32); TOTAL PROTEIN 9.1 G/DL (6.4-8.2); eGFR 84 ML/MIN
[2020-10-19] MEDS: morphine 4 MG/ML inj SYRINge IV PRN ×3 (12:48→20:47)
[2020-10-19] MEDS ORDERED: CefTRIAXone 2gm/D5W 50ml BAG 50 ML IV ONE (14:05)
[2020-10-19] MEDS ORDERED: vancomycin/NS 1 GM ADD-VANTAGE 250 ML IV ONE (14:05)
[2020-10-19] MEDS ORDERED: magnesium 2GM in 50ml NS 50 ML IV PRN (14:20)
[2020-10-19] MEDS ORDERED: acetaminophen 650mg rectal suppository RC PRN (14:20)
[2020-10-19] MEDS ORDERED: HYDROcodone/acetaminophen 5mg/325mg tablet PO PRN (14:20)
[2020-10-19] MEDS ORDERED: magnesium 4gm in 100ml NS 100 ML IV PRN (14:20)
[2020-10-19] MEDS ORDERED: acetaminophen 325mg tablet PO PRN ×2 (14:20)
[2020-10-19] MEDS ORDERED: magnesium hydroxide 30ml (MOM) UD suspension PO PRN (14:20)
[2020-10-19] MEDS ORDERED: HYDROcodone/acetaminophen 10/325mg tab PO PRN (14:20)
[2020-10-19] MEDS ORDERED: magnesium Cl slow-release 64mg tablet PO PRN (14:20)
[2020-10-19] MEDS ORDERED: potassium Cl 20 mEq SR tablet PO PRN ×2 (14:20)
[2020-10-19] MEDS ORDERED: morphine 2 MG/ML inj. syringe IV PRN ×2 (14:20)
[2020-10-19] MEDS ORDERED: diphenhydrAMINE 25mg capsule PO PRN (14:20)
[2020-10-19] MEDS ORDERED: potassium Cl 40MEQ/1/2NS 520ml 520 ML IV PRN ×2 (14:20)
[2020-10-19] MEDS ORDERED: bisacodyl 10mg suppository rectal RC PRN (14:20)
[2020-10-19] MEDS ORDERED: mag hydrox/Alum hydrox/simeth 30ml oral suspension PO PRN (14:20)
[2020-10-19] MEDS: ondansetron/PF 4mg/2ml inj IV PRN ×2 (15:02→20:48)
[2020-10-19] MEDS ORDERED: IOHEXOL 12MG/ML oral solution 500 ML BOTTLE PO ONE (15:10)
[2020-10-19] MEDS: piperacillin/tazo 3.375gm/50ml 50 ML IV SCH ×2 (15:55→23:25)
[2020-10-19] MEDS: normal saline 1000ml 1,000 ML IV SCH (15:55)
[2020-10-19] MEDS ORDERED: ESCI10TA PO (16:15)
[2020-10-19 16:18] LABS: CLARITY,URINE CLEAR (Clear); COLOR,URINE YELLOW (Yellow); GLUCOSE, URINE NEGATIVE (Neg); KETONES,URINE 40 mg/dl (Neg); LEUKOCYTE ESTERASE ,URINE NEGATIVE (Neg); NITRITES, URINE NEGATIVE (Neg); OCCULT BLOOD,URINE NEGATIVE (Neg); PH,URINE 8.5 (4.8-8.0); PROTEIN,URINE TRACE mg/dl (Neg); UROBILINOGEN,URINE 0.2 E.U/dL (0.2-1.0)
[2020-10-19] MEDS ORDERED: TEST75GE TOP (16:18)
[2020-10-19] MEDS ORDERED: MULT-227 PO (16:18)
[2020-10-19] MEDS ORDERED: OXYC-150 PO (16:18)
[2020-10-19] MEDS ORDERED: LEVO25TA2 PO (16:18)
[2020-10-19 16:47] LABS: UA COLLECTION TYPE URINAL
[2020-10-19 16:51] LABS: SQUAMOUS EPITHELIAL CELL,UR FEW /LPF (FEW)
[2020-10-19 16:53] LABS: BACTERIA,URINE NONE SEEN /HPF (Neg); RBC,URINE 0-2 /HPF (0-2); WBC,URINE 0-4 /HPF (0-4)
[2020-10-19 16:54] LABS: MUCUS STRANDS FEW /LPF (Neg)
[2020-10-19] MEDS ORDERED: ROPI1TAB6 PO (16:59)
[2020-10-19] MEDS ORDERED: CEPH500C2 PO (16:59)
[2020-10-19] MEDS ORDERED: PREG100C PO (16:59)
[2020-10-19] MEDS ORDERED: TRAZ-256 PO (16:59)
[2020-10-19] MEDS ORDERED: CYCL-394 PO (16:59)
[2020-10-19] MEDS ORDERED: cyclobenzaprine 10mg tablet PO PRN (19:30)
--- NOTE | 2020-10-19 19:45 | NUR ---
The patient was moved to bed 22 in the main ER. He was made aware of the plan of care. Physical assessment completed. He currently is complaining of pain 11/02
[2020-10-19] MEDS: K and/or MAG REPLACEMENT MC SCH (20:00)
--- NOTE | 2020-10-19 20:03 | NUR ---
Dr Mathews at the bedside.
[2020-10-19] MEDS: ESCITALOPRAM OXALATE 5 MG TABLET PO SCH (21:07)
[2020-10-19] MEDS: ROPINIRole 1mg tablet PO SCH (21:07)
[2020-10-19] MEDS: pregabalin 25mg capsule PO SCH (21:07)
[2020-10-19] MEDS: PALIPERIDONE 3 MG TAB.ER.24 PO SCH (21:08)
[2020-10-19] MEDS: traZODone 150mg tablet PO PRN (21:09)
--- NOTE | 2020-10-19 21:27 | NUR ---
THe patient reporting both nausea and abd pain 8/ and was medicated and now appears to be sleeping
[2020-10-19] MEDS: vancomycin/NS 1 GM ADD-VANTAGE 250 ML IV SCH (21:38)
--- NOTE | 2020-10-20 04:03 | NUR ---
The patient appears to be resting comfortably
[2020-10-20] MEDS: normal saline 1000ml 1,000 ML IV SCH ×3 (05:28→16:32)
[2020-10-20] MEDS: vancomycin/NS 1 GM ADD-VANTAGE 250 ML IV SCH (05:29)
--- NOTE | 2020-10-20 06:34 | NUR ---
Patient sleeping on his left side. No distress observed. Continue to monitor.
[2020-10-20] MEDS: TESTOSTERONE TP SCH (08:00)
[2020-10-20 08:02] LABS: BASOPHILS # (AUTO) 0.1 X10'3 (0-0.2); BASOPHILS % (AUTO) 0.7 % (0-1); EOSINOPHILS # (AUTO) 0.3 X10'3 (0-0.9); EOSINOPHILS % (AUTO) 4.2 % (0-6); HEMATOCRIT 40.1 % (42.0-52.0); HEMOGLOBIN 13.4 g/dl (14.0-17.9); LYMPHOCYTES # (AUTO) 1.4 X10'3 (1.1-4.8); LYMPHOCYTES % (AUTO) 18.3 % (21-51); MEAN CORPUSCULAR HEMOGLOBIN 29.8 PG (27.0-31.0); MEAN CORPUSCULAR HGB CONC 33.5 g/dL (33.0-36.5); MEAN CORPUSCULAR VOLUME 89.1 FL (78-98); MEAN PLATELET VOLUME 7.2 FL (7.4-10.4); MONOCYTES # (AUTO) 0.8 X10'3 (0-0.9); MONOCYTES % (AUTO) 9.9 % (2-12); NEUTROPHILS # (AUTO) 5.1 X10'3 (1.8-7.7); NEUTROPHILS % (AUTO) 66.9 % (42-75); PLATELET COUNT 403 X10'3 (140-440); RED CELL DISTRIBUTION WIDTH 12.8 % (11.5-14.5); WHITE BLOOD COUNT 7.7 X10'3 (4.5-11.0)
[2020-10-20] MEDS: pregabalin 25mg capsule PO SCH ×3 (08:14→21:54)
[2020-10-20] MEDS: multivitamins, therapeutics tablet PO SCH (08:14)
[2020-10-20] MEDS: levoTHYROXINE 25mcg tablet PO SCH (08:14)
[2020-10-20] MEDS: ondansetron/PF 4mg/2ml inj IV PRN (08:15)
[2020-10-20] MEDS: piperacillin/tazo 3.375gm/50ml 50 ML IV SCH ×2 (08:15→18:43)
[2020-10-20] MEDS: morphine 4 MG/ML inj SYRINge IV PRN (08:16)
--- NOTE | 2020-10-20 08:20 | NUR ---
Patient eating breakfast. No distress observed. RN gave patient Morphine for pain. Continue to monitor.
[2020-10-20] MEDS: ROPINIRole 1mg tablet PO SCH ×3 (08:21→20:54)
[2020-10-20 08:34] LABS: GLUCOSE 102 MG/DL (70-104); TOTAL CARBON DIOXIDE 24.9 MMOL/L (24-32)
[2020-10-20 08:35] LABS: ALANINE AMINOTRANSFERASE 33 U/L (12-78); ALBUMIN 3.4 G/DL (3.4-5.0); ALBUMIN/GLOBULIN RATIO 0.9 (1.1-1.5); ALKALINE PHOSPHATASE 96 IU/L (46-116); ASPARTATE AMINO TRANSFERASE 36 U/L (10-37); BILIRUBIN,TOTAL 0.6 MG/DL (0.1-1.0); BUN/CREATININE RATIO 13.3 (5.4-32.0); CALCIUM 8.4 MG/DL (8.5-10.1); PHOSPHORUS 3.1 MG/DL (2.3-4.5); eGFR > 90 ML/MIN
[2020-10-20 08:44] LABS: BLOOD UREA NITROGEN 12 MG/DL (7-18)
[2020-10-20 08:54] LABS: ANION GAP 10 (8-16); CHLORIDE 106 MMOL/L (99-107); POTASSIUM 4.1 MMOL/L (3.5-5.1); SODIUM 141 MMOL/L (135-145)
[2020-10-20] MEDS: K and/or MAG REPLACEMENT MC SCH ×2 (09:05→20:00)
--- NOTE | 2020-10-20 09:18 | NUR ---
Patient sleeping supine. No distress observed. Continue to monitor.
--- NOTE | 2020-10-20 11:04 | NUR ---
Patient continues with antibiotic infusion. Patient attempting to sleep but his phone keeps ringing off the hook. Patient is pleasant and cooperative. Continue to monitor.
[2020-10-20] MEDS ORDERED: diatr meglu/diatrizoate 30ml oral sol.-(3 dose) bottle PO ONE (11:05)
--- NOTE | 2020-10-20 12:51 | NUR ---
Patient eating lunch. No distress observed. Continue to monitor.
[2020-10-20] MEDS ORDERED: VANCOMYCIN LEVEL IV ONE (13:30)
[2020-10-20] MEDS: oxyCODONE/APAP 5-325mg tablet PO PRN ×2 (13:37→18:44)
[2020-10-20] MEDS ORDERED: midazolam 1 mg/ML 2ml injection ONE (14:15)
[2020-10-20] MEDS ORDERED: fentaNYL/PF 50MCG/1 ML 2ML syringe ONE (14:15)
[2020-10-20 14:25] VITALS: BP 153/81
[2020-10-20 14:45] VITALS: BP 135/79
[2020-10-20 14:49] VITALS: BP 148/77
--- NOTE | 2020-10-20 16:57 | NUR ---
PAGER ID: [phone] MESSAGE: [facility] [phone]- [phone] - Dr Zepeda drained the abscess and feels the pt does not need to stay. No infections noted in drained fluids. Please advise. Thank you Woody KIM./Shreya Cortés [phone]
[2020-10-20 18:00] VITALS: BP 130/65
[2020-10-20] MEDS: diazepam 5mg tablet PO PRN (18:53)
[2020-10-20] MEDS: lactobacillus rhamnosus 10,000 MMU CELLS/CAPSULE PO SCH (20:53)
[2020-10-20] MEDS: ESCITALOPRAM OXALATE 5 MG TABLET PO SCH (20:53)
[2020-10-20] MEDS: PALIPERIDONE 3 MG TAB.ER.24 PO SCH (20:54)
[2020-10-20] MEDS: traZODone 150mg tablet PO PRN (21:55)
[2020-10-20] MEDS: oxyCODONE/APAP 10/325mg tablet PO PRN (22:46)
[2020-10-20 23:00] VITALS: BP 130/74
[2020-10-21] MEDS: ondansetron/PF 4mg/2ml inj IV PRN (00:22)
[2020-10-21] MEDS: piperacillin/tazo 3.375gm/50ml 50 ML IV SCH (02:56)
[2020-10-21] MEDS: oxyCODONE/APAP 10/325mg tablet PO PRN (05:34)
[2020-10-21 05:56] LABS: BASOPHILS # (AUTO) 0.1 X10'3 (0-0.2); BASOPHILS % (AUTO) 0.9 % (0-1); EOSINOPHILS # (AUTO) 0.3 X10'3 (0-0.9); EOSINOPHILS % (AUTO) 3.7 % (0-6); HEMATOCRIT 38.9 % (42.0-52.0); LYMPHOCYTES # (AUTO) 2.1 X10'3 (1.1-4.8); LYMPHOCYTES % (AUTO) 23.3 % (21-51); MEAN CORPUSCULAR HEMOGLOBIN 29.7 PG (27.0-31.0); MEAN CORPUSCULAR HGB CONC 33.4 g/dL (33.0-36.5); MEAN PLATELET VOLUME 7.5 FL (7.4-10.4); MONOCYTES % (AUTO) 11.3 % (2-12); NEUTROPHILS # (AUTO) 5.5 X10'3 (1.8-7.7); NEUTROPHILS % (AUTO) 60.8 % (42-75); PLATELET COUNT 402 X10'3 (140-440); RED BLOOD COUNT 4.37 X10'6 (4.70-6.10); RED CELL DISTRIBUTION WIDTH 12.9 % (11.5-14.5); WHITE BLOOD COUNT 9.1 X10'3 (4.5-11.0)
[2020-10-21 06:05] LABS: ALANINE AMINOTRANSFERASE 35 U/L (12-78); ALBUMIN 3.3 G/DL (3.4-5.0); ALBUMIN/GLOBULIN RATIO 0.9 (1.1-1.5); ALKALINE PHOSPHATASE 92 IU/L (46-116); ANION GAP 8 (8-16); ASPARTATE AMINO TRANSFERASE 15 U/L (10-37); BILIRUBIN,TOTAL 0.3 MG/DL (0.1-1.0); BLOOD UREA NITROGEN 14 MG/DL (7-18); BUN/CREATININE RATIO 16.1 (5.4-32.0); CALCIUM 8.2 MG/DL (8.5-10.1); CHLORIDE 108 MMOL/L (99-107); CREATININE 0.87 MG/DL (0.60-1.10); GLUCOSE 104 MG/DL (70-104); MAGNESIUM 2.1 MG/DL (1.5-2.4); PHOSPHORUS 3.9 MG/DL (2.3-4.5); POTASSIUM 3.6 MMOL/L (3.5-5.1); SODIUM 142 MMOL/L (135-145); TOTAL CARBON DIOXIDE 25.7 MMOL/L (24-32); TOTAL PROTEIN 6.8 G/DL (6.4-8.2); eGFR > 90 ML/MIN
[2020-10-21] MEDS: normal saline 1000ml 1,000 ML IV SCH (06:20)
[2020-10-21 07:00] VITALS: BP 125/59
--- NOTE | 2020-10-21 07:12 | NUR ---
Problems reprioritized. Patient report given, questions answered & plan of care reviewed with Shreya KIM.
[2020-10-21] MEDS: K and/or MAG REPLACEMENT MC SCH (08:00)
[2020-10-21] MEDS: TESTOSTERONE TP SCH (08:00)
[2020-10-21] MEDS: pregabalin 25mg capsule PO SCH (08:46)
[2020-10-21] MEDS: lactobacillus rhamnosus 10,000 MMU CELLS/CAPSULE PO SCH (08:46)
[2020-10-21] MEDS: levoTHYROXINE 25mcg tablet PO SCH (08:46)
[2020-10-21] MEDS: multivitamins, therapeutics tablet PO SCH (08:46)
[2020-10-21] MEDS: ROPINIRole 1mg tablet PO SCH (08:47)
[2020-10-21] MEDS: diazepam 5mg tablet PO PRN (08:51)
[2020-10-21] MEDS ORDERED: oxyCODONE/APAP 10/325mg tablet PO PRN (09:30)
--- NOTE | 2020-10-21 11:05 | NUR ---
Patients discharge instructions reviewed with patient and patient verbalized understanding. Patients IV dc'd cannula intact. Patient states he has all his belongings. Ambulated with patient and his ride to the elevator for discharge.
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
[2020-10-21] MEDS ORDERED: piperacillin/tazo 3.375gm/50ml 50 ML IV SCH (12:00)
[2020-10-21] MEDS ORDERED: VANCOMYCIN LEVEL IV ONE (15:30)
== END 2020-10-21 11:05 | disposition home or self-care (01) | DRG 794 ==
LOC: ER 11:40 → UNDOADMIN 14:18 → ED HOLD 14:18 → SUR 3N 10-20 15:20 → ED HOLD 10-20 15:20 → UNDODISIN 10-21 11:05
PROVIDERS: ADMIT Family Medicine; ATTEND Family Medicine
PROC: 0W9J3ZX Drainage of Pelvic Cavity, Percutaneous Approach, Diagnostic (ICD-10-PCS; principal; 2020-10-20)
DX: L76.34 Postprocedural seroma of skin and subcutaneous tissue following other procedure (principal); F25.9 Schizoaffective disorder, unspecified; E03.9 Hypothyroidism, unspecified; Y83.8 Other surgical procedures as the cause of abnormal reaction of the patient, or of later complication, without mention of misadventure at the time of the procedure; Y82.8 Other medical devices associated with adverse incidents; F43.10 Post-traumatic stress disorder, unspecified; G89.4 Chronic pain syndrome; Z86.16 Personal history of COVID-19; Z87.891 Personal history of nicotine dependence
CPT/HCPCS: 10030; 36415; 71045; 74176; 74177; 76942; 80053; 80202; 81001; 83605; 83735; 84100; 84145; 84443; 85025; 87040; 87070; 87075; 87081; 87102; 93005; 96374; 99285; G0378; J0696; J2250; J2270; J2405; J2543; J3010; J3370; J7030; Q9963; Q9967

== ENCOUNTER 2020-11-02 20:01 | Emergency (ER) | payer MEDICAID ==
[~2020-11-02] VITALS: Ht 185.4 cm; Wt 123.3 kg
[~2020-11-02 20:01] MED LIST changes: +CEPH500C2 PO; +CYCL-394 PO; +ESCI10TA PO; -HYDR-3686 PO; -HYDR-4353 PO; +LEVO25TA2 PO; +MULT-227 PO; +OXYC-150 PO; +PREG100C PO; +ROPI1TAB6 PO; -SYN0.088T PO; -TEST200V10 IM; +TEST75GE TOP; -TOP100T PO; -TOPI50TA PO; +TRAZ-256 PO
[2020-11-02 21:00] LABS: BASOPHILS # (AUTO) 0.1 X10'3 (0-0.2); BASOPHILS % (AUTO) 0.7 % (0-1); EOSINOPHILS # (AUTO) 0.4 X10'3 (0-0.9); EOSINOPHILS % (AUTO) 3.7 % (0-6); HEMATOCRIT 43.1 % (42.0-52.0); HEMOGLOBIN 14.7 g/dl (14.0-17.9); LYMPHOCYTES # (AUTO) 3.1 X10'3 (1.1-4.8); LYMPHOCYTES % (AUTO) 28.3 % (21-51); MEAN CORPUSCULAR HEMOGLOBIN 29.7 PG (27.0-31.0); MEAN CORPUSCULAR HGB CONC 34.2 g/dL (33.0-36.5); MEAN CORPUSCULAR VOLUME 86.9 FL (78-98); MEAN PLATELET VOLUME 7.1 FL (7.4-10.4); MONOCYTES # (AUTO) 1.3 X10'3 (0-0.9); MONOCYTES % (AUTO) 12.1 % (2-12); NEUTROPHILS % (AUTO) 55.2 % (42-75); PLATELET COUNT 391 X10'3 (140-440); RED BLOOD COUNT 4.95 X10'6 (4.70-6.10); WHITE BLOOD COUNT 10.9 X10'3 (4.5-11.0)
[2020-11-02 21:14] LABS: CLARITY,URINE CLEAR (Clear); COLOR,URINE YELLOW (Yellow); GLUCOSE, URINE NEGATIVE (Neg); KETONES,URINE NEGATIVE (Neg); LEUKOCYTE ESTERASE ,URINE NEGATIVE (Neg); NITRITES, URINE NEGATIVE (Neg); OCCULT BLOOD,URINE NEGATIVE (Neg); PROTEIN,URINE TRACE mg/dl (Neg); UROBILINOGEN,URINE 0.2 E.U/dL (0.2-1.0)
[2020-11-02 21:27] LABS: ALANINE AMINOTRANSFERASE 99 U/L (12-78); ALBUMIN 4.2 G/DL (3.4-5.0); ALBUMIN/GLOBULIN RATIO 1.1 (1.1-1.5); ALKALINE PHOSPHATASE 107 IU/L (46-116); ANION GAP 10 (8-16); ASPARTATE AMINO TRANSFERASE 39 U/L (10-37); BILIRUBIN,TOTAL 0.3 MG/DL (0.1-1.0); BLOOD UREA NITROGEN 20 MG/DL (7-18); BUN/CREATININE RATIO 21.5 (5.4-32.0); CALCIUM 9.2 MG/DL (8.5-10.1); CHLORIDE 104 MMOL/L (99-107); CREATININE 0.93 MG/DL (0.60-1.10); GLUCOSE 108 MG/DL (70-104); LIPASE 204 U/L (73-393); POTASSIUM 4.3 MMOL/L (3.5-5.1); SODIUM 141 MMOL/L (135-145); TOTAL CARBON DIOXIDE 26.7 MMOL/L (24-32); TOTAL PROTEIN 8.2 G/DL (6.4-8.2); eGFR > 90 ML/MIN
[2020-11-02 21:45] LABS: UA COLLECTION TYPE CLN CATCH MIDSTREAM
[2020-11-02 21:46] LABS: BACTERIA,URINE NONE SEEN /HPF (Neg); RBC,URINE NONE SEEN /HPF (0-2); SQUAMOUS EPITHELIAL CELL,UR NONE SEEN /LPF (FEW); WBC,URINE NONE SEEN /HPF (0-4)
[2020-11-02] MEDS ORDERED: iohexol 300mg/ml 100ml inj. ONE (23:58)
[2020-11-03] MEDS ORDERED: ondansetron/PF 4mg/2ml inj IV ONE (02:50)
[2020-11-03] MEDS ORDERED: normal saline 1000ML IV soln IVB ONE (02:50)
[2020-11-03] MEDS ORDERED: morphine 4 MG/ML inj SYRINge IV ONE (03:10)
[2020-11-03] MEDS ORDERED: ONDA4TAB6 PO (03:41)
[2020-11-03 04:02] VITALS: BP 141/105
[2020-11-03 04:16] LABS: OCCULT BLOOD STOOL NEGATIVE (Neg)
== END 2020-11-03 04:21 | disposition home or self-care (01) ==
LOC: ER 20:02
DX: A08.4 Viral intestinal infection, unspecified (principal); R10.84 Generalized abdominal pain; R50.9 Fever, unspecified; R61 Generalized hyperhidrosis; G89.29 Other chronic pain; F32.9 Major depressive disorder, single episode, unspecified; F12.90 Cannabis use, unspecified, uncomplicated; Z98.890 Other specified postprocedural states; Z88.6 Allergy status to analgesic agent; Z79.2 Long term (current) use of antibiotics; Z79.899 Other long term (current) drug therapy
CPT/HCPCS: 36415; 71045; 74177; 80053; 81001; 82272; 83605; 83690; 84145; 85025; 87040; 96361; 96374; 96375; 99285; J2270; J2405; J7030; Q9967

== ENCOUNTER 2020-11-19 13:44 | Emergency (ER) | payer MEDICAID ==
[~2020-11-19] VITALS: Ht 185.4 cm; Wt 122.3 kg
[~2020-11-19 13:44] MED LIST changes: +ONDA4TAB6 PO
[2020-11-19 13:50] VITALS: BP 163/105
[2020-11-19 14:26] LABS: BASOPHILS % (AUTO) 0.4 % (0-1); EOSINOPHILS % (AUTO) 0.3 % (0-6); HEMATOCRIT 40.7 % (42.0-52.0); HEMOGLOBIN 14.1 g/dl (14.0-17.9); LYMPHOCYTES # (AUTO) 1.6 X10'3 (1.1-4.8); LYMPHOCYTES % (AUTO) 16.3 % (21-51); MEAN CORPUSCULAR HEMOGLOBIN 30.1 PG (27.0-31.0); MEAN CORPUSCULAR HGB CONC 34.5 g/dL (33.0-36.5); MEAN CORPUSCULAR VOLUME 87.1 FL (78-98); MEAN PLATELET VOLUME 7.4 FL (7.4-10.4); MONOCYTES # (AUTO) 0.8 X10'3 (0-0.9); MONOCYTES % (AUTO) 8.3 % (2-12); NEUTROPHILS # (AUTO) 7.5 X10'3 (1.8-7.7); NEUTROPHILS % (AUTO) 74.7 % (42-75); PLATELET COUNT 387 X10'3 (140-440); RED BLOOD COUNT 4.68 X10'6 (4.70-6.10); RED CELL DISTRIBUTION WIDTH 13.4 % (11.5-14.5)
[2020-11-19 14:42] LABS: ALANINE AMINOTRANSFERASE 82 U/L (12-78); ALBUMIN 4.3 G/DL (3.4-5.0); ALBUMIN/GLOBULIN RATIO 1.1 (1.1-1.5); ALKALINE PHOSPHATASE 101 IU/L (46-116); ANION GAP 12 (8-16); ASPARTATE AMINO TRANSFERASE 37 U/L (10-37); BILIRUBIN,TOTAL 0.6 MG/DL (0.1-1.0); BLOOD UREA NITROGEN 15 MG/DL (7-18); BUN/CREATININE RATIO 13.6 (5.4-32.0); CHLORIDE 105 MMOL/L (99-107); GLUCOSE 164 MG/DL (70-104); POTASSIUM 3.9 MMOL/L (3.5-5.1); SODIUM 142 MMOL/L (135-145); TOTAL CARBON DIOXIDE 25.4 MMOL/L (24-32); TOTAL PROTEIN 8.2 G/DL (6.4-8.2); eGFR 77 ML/MIN
[2020-11-19 19:48] LABS: D-DIMER 0.34 MG/L FEU (0-0.50)
== END 2020-11-19 21:03 | disposition home or self-care (01) ==
LOC: ER 13:44
DX: R07.89 Other chest pain (principal); F41.9 Anxiety disorder, unspecified; R00.2 Palpitations; R11.0 Nausea; G89.29 Other chronic pain; F32.9 Major depressive disorder, single episode, unspecified; F12.90 Cannabis use, unspecified, uncomplicated; Z98.890 Other specified postprocedural states; Z88.6 Allergy status to analgesic agent; Z79.2 Long term (current) use of antibiotics; Z79.899 Other long term (current) drug therapy
CPT/HCPCS: 36415; 71045; 80053; 83880; 84484; 85025; 85379; 87040; 93005; 99285

== ENCOUNTER 2021-07-27 16:04 | Emergency (ER) | payer MEDICAID, OTHER ==
[~2021-07-27] VITALS: Ht 185.4 cm; Wt 127.3 kg
[2021-07-27] MEDS ORDERED: HYDROcodone/acetaminophen 10/325mg tab PO ONE (17:40)
[2021-07-27 17:56] VITALS: BP 122/77
== END 2021-07-27 17:58 | disposition home or self-care (01) ==
LOC: EEVIPCON 16:05 → ER 16:05
DX: N43.2 Other hydrocele (principal); N50.811 Right testicular pain; I10 Essential (primary) hypertension; G89.29 Other chronic pain; M54.9 Dorsalgia, unspecified; F12.10 Cannabis abuse, uncomplicated; Z88.6 Allergy status to analgesic agent; Z88.8 Allergy status to other drugs, medicaments and biological substances
CPT/HCPCS: 76870; 93976; 99284

== ENCOUNTER 2022-12-31 09:19 | Emergency (ER) | payer MEDICARE, MEDICAID ==
[~2022-12-31] VITALS: Ht 188 cm; Wt 127.3 kg
[~2022-12-31 09:19] MED LIST changes: +ROPI1TAB47 PO; -ROPI1TAB6 PO
[2022-12-31] MEDS ORDERED: normal saline 1000ML IV soln IVB ONE (10:00)
--- NOTE | 2022-12-31 10:18 | NUR ---
Contacted Poison Control Center, spoke to the Alina on the phone to report overdose of Haldol. I reported that patient was here in the ER for suicidal ideation, reported he took approximately 50 tablets of Haldol 5 mg. Recommendations received are as follows: - continous cardiac monitoring, 12 lead EKG if normal EKG repeat in 4 to 6 hrs - WOF QT prolongation, if QTC > or equal to 500 milliseconds, Magnesium 1-2 grams IV - If QRS > or equal to 120 milliseconds, give NAHCO3 IV bolus CBC, CMP, include liver enzymes, Ca, Mg, CK level, acetaminophen and salicylate level, urine drug screen, . If liver enzymes elevated, call Posion control back. - WOF agitation, psychosis, hypotension, hyperthermia, seizure - Observation for 12 hours until asymptomatic -Make sure electrolytes (K,Ca, Mg) are within normal Addendum: 12/31/[address] Turner were notified about Poison Control Center's recommendations
[2022-12-31 10:49] LABS: MEAN CORPUSCULAR VOLUME 89.8 FL (78-98); WHITE BLOOD COUNT 13.5 X10'3 (4.5-11.0)
[2022-12-31 10:50] LABS: BASOPHILS # (AUTO) 0.1 X10'3 (0-0.2); BASOPHILS % (AUTO) 0.6 % (0-1); EOSINOPHILS % (AUTO) 0.1 % (0-6); HEMATOCRIT 44.6 % (42.0-52.0); HEMOGLOBIN 15.1 g/dl (14.0-17.9); LYMPHOCYTES # (AUTO) 1.5 X10'3 (1.1-4.8); LYMPHOCYTES % (AUTO) 11.4 % (21-51); MEAN CORPUSCULAR HEMOGLOBIN 30.5 PG (27.0-31.0); MEAN CORPUSCULAR HGB CONC 33.9 g/dL (33.0-36.5); MEAN PLATELET VOLUME 7.6 FL (7.4-10.4); MONOCYTES # (AUTO) 0.9 X10'3 (0-0.9); MONOCYTES % (AUTO) 6.7 % (2-12); NEUTROPHILS # (AUTO) 10.9 X10'3 (1.8-7.7); NEUTROPHILS % (AUTO) 81.2 % (42-75); PLATELET COUNT 390 X10'3 (140-440); RED BLOOD COUNT 4.96 X10'6 (4.70-6.10); RED CELL DISTRIBUTION WIDTH 13.2 % (11.5-14.5)
[2022-12-31 10:54] LABS: ALANINE AMINOTRANSFERASE 48 U/L (12-78); ALBUMIN 4.3 G/DL (3.4-5.0); ALBUMIN/GLOBULIN RATIO 1.1 (1.1-1.5); ALKALINE PHOSPHATASE 105 IU/L (46-116); ANION GAP 12 (8-16); ASPARTATE AMINO TRANSFERASE 27 U/L (10-37); BILIRUBIN,TOTAL 0.6 MG/DL (0.1-1.0); CALCIUM 9.5 MG/DL (8.5-10.1); CHLORIDE 103 MMOL/L (99-107); CREATININE 1.35 MG/DL (0.60-1.10); GLUCOSE 123 MG/DL (70-104); POTASSIUM 3.7 MMOL/L (3.5-5.1); SODIUM 135 MMOL/L (135-145); TOTAL CARBON DIOXIDE 20.3 MMOL/L (24-32); TOTAL PROTEIN 8.2 G/DL (6.4-8.2); eCRCL 87 ML/MIN; eGFR 59 ML/MIN
[2022-12-31 11:03] LABS: ETHANOL < 10 MG/DL (<10); SALICYLATE 3.2 MG/DL (4.0-20.0)
[2022-12-31 11:11] LABS: ACETAMINOPHEN < 2.0 UG/ML (10-30)
[2022-12-31 11:26] LABS: CREATINE KINASE 73 U/L (39-308); MAGNESIUM 2.1 MG/DL (1.5-2.4)
--- NOTE | 2022-12-31 11:27 | NUR ---
Patient reported to me that he also took Lunesta 1 bottle approximately [address] Turner was notified about this.
[2022-12-31 11:41] LABS: BLOOD UREA NITROGEN 16 MG/DL (7-18); BUN/CREATININE RATIO 11.9 (10.0-20.0)
[2022-12-31 14:54] LABS: BILIRUBIN,URINE NEGATIVE (Neg); CLARITY,URINE SLIGHTLY CLOUDY (Clear); COLOR,URINE YELLOW (Yellow); GLUCOSE, URINE NEGATIVE (Neg); KETONES,URINE 15 mg/dl (Neg); LEUKOCYTE ESTERASE ,URINE NEGATIVE (Neg); NITRITES, URINE NEGATIVE (Neg); OCCULT BLOOD,URINE NEGATIVE (Neg); PH,URINE 5.5 (4.8-8.0); PROTEIN,URINE TRACE mg/dl (Neg)
[2022-12-31 14:55] LABS: UA COLLECTION TYPE CLN CATCH MIDSTREAM
[2022-12-31 14:55] LABS: URINE AMPHETAMINE SCREEN NEGATIVE (Neg); URINE BARBITUATE SCREEN NEGATIVE (Neg); URINE BENZODIAZEPINES SCREEN NEGATIVE (Neg); URINE CANNABINOID SCREEN POSITIVE (Neg); URINE COCAINE SCREEN NEGATIVE (Neg); URINE METHADONE SCREEN NEGATIVE (Neg); URINE OPIATE SCREEN NEGATIVE (Neg); URINE PHENCYCLIDINE SCREEN NEGATIVE (Neg)
[2022-12-31 15:02] LABS: BACTERIA,URINE NONE SEEN /HPF (Neg); MUCUS STRANDS MODERATE /LPF (Neg); RBC,URINE NONE SEEN /HPF (0-2); SQUAMOUS EPITHELIAL CELL,UR FEW /LPF (FEW); WBC,URINE 0-4 /HPF (0-4)
[2022-12-31] MEDS ORDERED: haloperidol lactate 5mg/ml inj IM ONE (15:40)
[2022-12-31] MEDS ORDERED: LORazepam 2 mg/ml vial IM ONE ×2 (15:40→16:05)
[2022-12-31] MEDS ORDERED: diphenhydrAMINE 50 mg/ml inj IV ONE (15:40)
--- NOTE | 2022-12-31 16:14 | NUR ---
PT BECAME EXTREEMLY AGGITATED, YELLING AND DEMANDING TO SEE MENTAL HEALTH. IT WAS EXPLAINED THAT DUE TO THE MEDICATION HE OVERDOSED ON THAT POISON CONTROL STATED THAT HE NEEDED TO BE OBSERVED FOR 12 HRS. PT CHECKED INTO THE ER AT 0919 AND WAS NOT SEEN BY THE PROVIDER UNTIL 1001 AT WHICH TIME POISON CONTROL WAS CALLED WITH THEIR RECOMMENDATION. IT WAS EXPLAINED TO THE PT THAT [facility] COULD NOT SEE HIM UNTIL THE 12 HRS OBSERVATION WAS COMPLETED AND HE WAS MEDICALLY CLEARED. PT CONTINUED TO BE CONFRONTATIONAL DEMANDING TO BE SEEN DUE TO HIS SI WAS INCREASING, STATING HE WAS GOING TO LEAVE AND GO OUT AND KILL HIMSELF WITH F[facility]YNAL. SECURITY STANDING BY, PT WAS ASKED TO CALM DOWN. DR HEREDIA AWARE OF PT'S BEHAVIOR AND ORDERED A B52. [facility] AWARE OF PT AND INFORMED THIS CHIEF RADIOLOGIC TECHNOLOGIST THAT THE PT HAS A LONG HX OF BEHAVIORAL ISSUES. DR HEREDIA WAS NOTIFIED. PT HAS SINCE CALMED DOWN AND IS MORE REASONALBLE WHEN GIVEN REASONS FOR THE MEDICAL OBSERVATOIN AND NEED TO BE MEDICALY CLEARED AFTER OBSERVATION HAS BE COMPLETED. PROVIDER NOTIFIED AND B52 WAS CANCLED.
--- NOTE | 2022-12-31 16:59 | NUR ---
Patient currently resting, calm. No haldol, ativan, and benadryl given as patient had calm down after the charge nurse Geeta spoke to him
--- NOTE | 2022-12-31 17:14 | NUR ---
Patient removed his telemonitor stickies and wirings. I tried to put them back, patient refused it. I did explained to him that we need to monitor his heart rhythm for any changes, patient replied "no, you're not putting that back to me! You guys already did EKG to me. Patient started getting a little agitated during the conversation. Patient persistently refusing the telemonitoring back. Charge nurse Zulay was informed about this.
--- NOTE | 2022-12-31 17:22 | NUR ---
PT SLEEPING, NO S/S OF DISTRESS NOTED. PT REFUSES TO KEEP MONITOR WIRES ON.
--- NOTE | 2022-12-31 17:36 | NUR ---
Dr. Hernandez was notified that patient refused the heart monitoring
--- NOTE | 2022-12-31 20:15 | NUR ---
Patient ambulatory to ED OF Bed 22 from Main ED. No distress observed. Patient laid down to go to sleep. Continue to monitor.
--- NOTE | 2022-12-31 22:04 | NUR ---
Patient sleeping on his right side. No distress observed. Continue to monitor.
--- NOTE | 2023-01-01 00:03 | NUR ---
Patient sleeping on his left side. No distress observed. Continue to monitor.
--- NOTE | 2023-01-01 01:58 | NUR ---
Patient sleeping on his left side. Respirations nonlabored. No distress observed. Continue to monitor.
--- NOTE | 2023-01-01 04:06 | NUR ---
Patient sleeping on his left side. Nonlabored respirations. No distress observed. Continue to monitor.
--- NOTE | 2023-01-01 05:08 | NUR ---
PACKETS SENT TO [facility]
--- NOTE | 2023-01-01 05:42 | NUR ---
Patient ambulatory to BR, steady gait. No distress observed. Continue to monitor.
[2023-01-01 05:43] VITALS: BP 140/80; PULSE 83; TEMP 97.3; O2SAT 98
--- NOTE | 2023-01-01 05:51 | NUR ---
Patient states he was awake all night. Patient stated he didn't ask for anything to sleep because he states nothing works for him. Patient is calm and cooperative. Continue to monitor.
--- NOTE | 2023-01-01 06:30 | NUR ---
Patient awake. Waved hello to this nurse. Lying quietly in bed. No s/sx of acute mental/physical distress noted. Will continue to monitor.
[2023-01-01 06:45] VITALS: RESP 16
[2023-01-01] MEDS ORDERED: BUPR1PAT10 TOP (06:57)
[2023-01-01] MEDS ORDERED: TRAZ150T78 PO (06:57)
--- NOTE | 2023-01-01 08:14 | NUR ---
Patient sitting up in bed. Ate 100% of meal. Watching TV. Pleasant, calm and cooperative. Able to make needs known. Faxed med req to pharmacy at this time.
[2023-01-01] MEDS: BUPRENORPHINE 7.5 MCG/HR TP SCH (09:00)
--- NOTE | 2023-01-01 10:20 | NUR ---
[place] interviewing patient at this time. No s/sx of distress noted. Received home pain patch Butrans from pharmacy. Will administer now.
--- NOTE | 2023-01-01 12:21 | NUR ---
Evaluated by [facility]. Patient discharged to [facility] via ambulation to [employer] without event. Discharge instructions & education provided to patient. Verbalizes understanding of instructions. Belongings/valuables returned to patient. Put on his clothes. Home med Butrans returned. Eager and smiling. Ready to discharge. No s/sx of acute mental/physical distress noted.
[2023-01-01] MEDS ORDERED: traZODone 150mg tablet PO SCH (21:00)
== END 2023-01-01 12:21 | disposition home or self-care (01) ==
LOC: ER 09:20
DX: T43.4X2A Poisoning by butyrophenone and thiothixene neuroleptics, intentional self-harm, initial encounter (principal); Z20.822 Contact with and (suspected) exposure to COVID-19; R45.851 Suicidal ideations; I10 Essential (primary) hypertension; F12.90 Cannabis use, unspecified, uncomplicated; Z88.6 Allergy status to analgesic agent; Z79.899 Other long term (current) drug therapy; Y92.89 Other specified places as the place of occurrence of the external cause
CPT/HCPCS: 36415; 80053; 80305; 80320; 80329; 81001; 82550; 83605; 83735; 85025; 87811; 93005; 96360; 96361; 99285; C2617; J7030

== ENCOUNTER 2023-05-03 11:13 | Emergency (ER) | payer MEDICARE, MEDICAID ==
[~2023-05-03] VITALS: Ht 188 cm; Wt 132.0 kg
[~2023-05-03 11:13] MED LIST changes: +BUPR1PAT10 TOP; -CEPH500C2 PO; -CYCL-394 PO; -DIAZ10TA4 PO; -ESCI10TA PO; -LEVO25TA2 PO; -MULT-227 PO; -ONDA4TAB6 PO; -OXYC-150 PO; -PALI6TAB PO; -PREG100C PO; -ROPI1TAB47 PO; -TEST75GE TOP; -TRAZ-256 PO; +TRAZ150T78 PO
[2023-05-03 11:42] VITALS: TEMP 98.3
[2023-05-03] MEDS ORDERED: CLIN-97 PO (12:28)
[2023-05-03] MEDS: HYDROcodone/acetaminophen 5mg/325mg tablet PO ONE (12:41)
[2023-05-03] MEDS: ketorolac trometh. 30mg/ml inj. IM ONE (12:42)
[2023-05-03 12:55] VITALS: BP 129/87; PULSE 98; RESP 17; O2SAT 98
== END 2023-05-03 13:02 | disposition home or self-care (01) ==
LOC: ER 11:14
DX: K08.89 Other specified disorders of teeth and supporting structures (principal); I10 Essential (primary) hypertension; F12.90 Cannabis use, unspecified, uncomplicated; Z88.5 Allergy status to narcotic agent; Z88.8 Allergy status to other drugs, medicaments and biological substances; Z79.899 Other long term (current) drug therapy
CPT/HCPCS: 96372; 99283; J1885

== ENCOUNTER 2023-05-07 14:11 | Emergency (ER) | payer MEDICARE, MEDICAID ==
[~2023-05-07] VITALS: Ht 188 cm; Wt 132.7 kg
[~2023-05-07 14:11] MED LIST changes: +CLIN-97 PO
[2023-05-07 14:30] VITALS: BP 132/87; PULSE 85; RESP 18; O2SAT 98
[2023-05-07] MEDS ORDERED: CLIN150C2 PO (14:45)
[2023-05-07] MEDS ORDERED: IBUP-1984 PO (14:45)
[2023-05-07 14:53] VITALS: TEMP 97.5
== END 2023-05-07 14:56 | disposition home or self-care (01) ==
LOC: ER 14:12
DX: K04.7 Periapical abscess without sinus (principal); I10 Essential (primary) hypertension; F12.90 Cannabis use, unspecified, uncomplicated; Z88.8 Allergy status to other drugs, medicaments and biological substances; Z79.1 Long term (current) use of non-steroidal anti-inflammatories (NSAID); Z79.2 Long term (current) use of antibiotics; Z79.899 Other long term (current) drug therapy
CPT/HCPCS: 99283